=== PATIENT | male | born 1990 | race Caucasian/White ===

== ENCOUNTER 2017-12-24 15:27 | Emergency (ER) | payer OTHER ==
[2017-12-24] MEDS: DEXAMETHASONE 10 MG/ML 1 ML INJ PO (17:04)
[2017-12-24] MEDS: IBUPROFEN 600 MG TAB PO (17:04)
[2017-12-24] MEDS: ACETAMINOPHEN 325 MG TAB PO (17:04)
[2017-12-24] MEDS: LIDOCAINE 2% (MDV) 20 ML INJ INJ (17:05)
[2017-12-24] MEDS: PENICILLIN G BENZ 1.2 MIL UNIT SYG IM (17:14)
== END 2017-12-24 17:35 | disposition home or self-care (01) ==
LOC: FTE 15:27
DX: J02.0 Streptococcal pharyngitis (principal); F17.210 Nicotine dependence, cigarettes, uncomplicated
CPT/HCPCS: 87591; 96372; 99284-25